=== PATIENT | male | born 1950 | race Caucasian/White ===

== ENCOUNTER 2021-10-11 00:51 | Emergency (ER) | payer OTHER, MEDICARE ==
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
[2021-10-11] MEDS ORDERED: Zofran 4 MG/2 ML VIAL IV ONE (01:13)
[2021-10-11] MEDS ORDERED: NITRO-BID 2% UD PACKETS TOP ONE (01:13)
[2021-10-11] MEDS ORDERED: MORPHINE SULFATE 4 MG INJ IV ONE (01:13)
[2021-10-11] MEDS ORDERED: Zofran 4 MG/2 ML VIAL ONE (01:34)
[2021-10-11] MEDS ORDERED: NITRO-BID 2% UD PACKETS ONE (01:35)
[2021-10-11] MEDS ORDERED: MORPHINE SULFATE 4 MG INJ ONE (01:35)
[2021-10-11 01:36] LABS: Absolute Neutrophil Ct (ANC) 6.08 (1.4-6.9); Basophil (Absolute #) 0.07 (0-0.4); Eosinophil % 6.7 % (0.00-5.0); Eosinophil (Absolute #) 0.61 (0-0.5); Hematocrit 48.2 % (42-50); Hemoglobin 16.6 gm/dl (12.5-18.0); Lymphocyte (Absolute #) 1.37 (1.0-4.6); Mean Cell Volume 85.6 fl (78-100); Mean Corpuscular Hemoglobin 29.5 pg (26-32); Mean Corpuscular Hgb Concent. 34.4 g/dl (32-36); Mean Platelet Volume 10.8 fl (7.5-11.0); Monocyte (Absolute #) 0.98 (0.0-1.3); Monocytes % 10.8 % (0.0-12.0); Neutrophil % 66.7 % (36.0-66.0); Platelet Count 164 K/mm3 (150-450); Red Blood Count 5.63 M/mm3 (4.1-5.6); Red Cell Distribution Width 14.6 % (11.5-14.0); White Blood Count 9.1 K/mm3 (4.0-10.5)
[2021-10-11 01:43] LABS: INR 0.97 (0.8-3.0); PROTIME 11.5 SECONDS (9.4-12.5)
[2021-10-11 02:13] VITALS: O2SAT 94
[2021-10-11 02:17] LABS: ALBUMIN 4.1 g/dL (3.5-5.0); ALKALINE PHOSPHATASE 104 U/L (38-126); ANION GAP 12.2 MEQ/L (5-15); BLOOD UREA NITROGEN 17 mg/dL (9-20); CHLORIDE 100 mmol/L (98-107); Calcium 9.4 mg/dL (8.4-10.2); Carbon Dioxide 29 mmol/L (22-30); Creatinine 1 0.62 mg/dL (0.66-1.25); EST GLOMERULAR FILTRATION RATE > 60.0 ML/MIN; Glucose 238 mg/dL (74-106); NT PRO BNP 315 pg/mL (0-900); Potassium 4.3 mmol/L (3.5-5.1); SGOT/AST 27 U/L (17-59); SGPT/ALT 21 U/L (0-50); SODIUM 137 mmol/L (137-145)
[2021-10-11 05:09] VITALS: BP 114/73; PULSE 95
--- NOTE | 2021-10-11 08:54 | XRAY ---
Indication: Left chest pain. Comparison: None Portable chest demonstrates mild left base subsegmental atelectasis/scarring. Remaining lungs clear. Heart not enlarged with mildly tortuous descending aorta. Bony thorax intact with mild osteopenia and degenerative changes. Impression: Left base atelectasis/scarring and chronic bony findings. No acute cardiopulmonary abnormalities.
== END 2021-10-11 05:19 | disposition home or self-care (01) ==
LOC: ED 00:51
DX: R07.9 Chest pain, unspecified (principal); I25.2 Old myocardial infarction; I50.9 Heart failure, unspecified; J44.9 Chronic obstructive pulmonary disease, unspecified; E11.9 Type 2 diabetes mellitus without complications; Z79.01 Long term (current) use of anticoagulants; Z79.899 Other long term (current) drug therapy
CPT/HCPCS: 36000; 36415; 71045; 80053; 82947; 83880; 84484; 85025; 85379; 85610; 93005; 96374; 96375; 99284; J2270; J2405; A9270-GY